=== PATIENT | male | born 1945 | race Caucasian/White ===

== ENCOUNTER 2020-02-28 11:44 | Emergency (ER) | payer OTHER, SELFPAY ==
[2020-02-28 11:54] VITALS: BP 129/80; PULSE 68; RESP 18; TEMP 36.8; O2SAT 95; BMI 26.6
--- NOTE | 2020-02-28 13:02 | XRR_ITS ---
PROCEDURE INFORMATION: Exam: XR Chest, 1 View Exam date and time: 02/28/2020 1:10 PM Age: 74 years old Clinical indication: Shortness of breath; Patient HX: C/O short of breath, weak and shaky. HX of bladder cancer; Additional info: SOB TECHNIQUE: Imaging protocol: XR of the chest Views: 1 view. COMPARISON: No relevant prior studies available. FINDINGS: Lungs: Unremarkable. No consolidation. Pleural space: Unremarkable. No pleural effusion. No pneumothorax. Heart/Mediastinum: Unremarkable. No cardiomegaly. Bones/joints: There are degenerative changes of the right shoulder. XR/XR chest 1V portable [id number] IMPRESSION: No acute findings
--- NOTE | 2020-02-28 13:06 | ECG_ITS ---
[facility] Test Date: 2020-02-28 Pat Name: Domenico Velazquez Department: Room: Gender: Male [employer] Technician: : 1945 Requested By: Calin Waller Order Number: [id number] Pat MD: Mervat Dc M.D. Measurements Intervals [place] Rate: 63 P: 70 PA: 159 QRS: 59 QRSD: 82 T: 46 QT: 394 QTc: 405 Interpretive Statements SINUS RHYTHM No previous ECG available for comparison Electronically Signed On 02-29-2020 1:21:22 CDT by Mervat Dc M.D. [email or web address]
[2020-02-28 13:35] LABS: Basophils % 0.2 %; Eosinophils # 0.1 10^3/uL (0.0-0.8); Eosinophils % 1.3 %; Hematocrit 42.9 % (42.0-52.0); Hemoglobin 13.9 g/dL (11.7-16.6); Lymphocytes # 1.5 10^3/uL (0.8-4.8); Lymphocytes % 29.3 %; Mean Corpuscular HGB Conc 32.4 g/dL (30.0-36.0); Mean Corpuscular Hemoglobin 29.7 pg (28.0-34.0); Mean Corpuscular Volume 91.7 fL (80-94); Mean Platelet Volume 10.9 fL (7.4-10.4); Monocytes # 0.6 10^3/uL (0.2-0.9); Monocytes % 10.5 %; Neutrophils # 3.07 10^3/uL (1.8-7.7); Neutrophils % 58.5 %; Nucleated Red Blood Cells % 0 %; Platelet Count 200 10^3/cmm (130-400); Red Blood Count 4.68 10^6/uL (4.1-5.3); White Blood Count 5.3 10^3/uL (4.0-10.0)
[2020-02-28 13:42] LABS: INR 0.93 (0.8-1.2)
[2020-02-28 13:50] LABS: Alanine Aminotransferase 23 U/L (0-41); Albumin Level 4.6 g/dL (3.5-5.2); Alkaline Phosphatase 119 IU/L (40-130); Anion Gap 15.3 (5-19); Aspartate Amino Transferase 22 U/L (0-40); Blood Urea Nitrogen 63 mg/dL (8-23); Calcium 9.5 mg/dL (8.5-10.5); Carbon Dioxide 25 mmol/L (22-29); Chloride 108 mmol/L (98-107); Globulin 2.7 g/dL (1.3-4.6); Glucose 97 mg/dL (65-115); Osmolality Calculated 297 mOsm/kg (285-295); Potassium 4.3 mmol/L (3.5-5.1); Sodium 144 mmol/L (136-145); Total Bilirubin 0.5 mg/dL (0.15-1.2); Total Protein 7.3 g/dL (6.6-8.7)
[2020-02-28 14:08] LABS: Troponin T (5th) Once 25 ng/L (0-15)
--- NOTE | 2020-02-28 14:11 | W.ED.WEAKNES ---
HPI - Weakness General: Chief complaint: Weakness Stated complaint: shaky/weak Time Seen by Provider: 02/28/20 14:11 History of Present Illness: HPI Narrative: 74-year-old male into the emergency department with multiple nonspecific complaints. He's felt dizzy and generally unwell a subtle lack of appetite spend a week. Patient has run a fever or had any infectious symptoms he hasn't been around anybody the nose with chronic virus with its been ill. He hasn't started on any new or different medications. He is not ever had symptoms quite like this in the past. Patient reports some mild nausea he hasn't been vomiting he doesn't have any chest pain or shortness of breath. He just feels generally weak and lightheaded. Associated symptoms: Reports nausea; Denies chest pain, chills, fever(s) or vomiting Review of Systems General: Reports: 10 or more systems reviewed and unremarkable except in HPI and below Const: Denies: fever(s) or chills Eyes: Denies: change in vision ENMT: Denies: throat pain Card: Denies: chest pain GI: Reports: nausea; Denies: vomiting : Reports: oliguria Musc: Denies: neck pain or muscle weakness Skin/Breast: Denies: rash or pruritus Physical Exam Const: COMMON NORMALS: no acute distress, average body habitus, patient oriented x3, no limitations, healthy appearing, alert and well nourished HENMT: COMMON NORMALS: normocephalic HEAD & SCALP: normocephalic Eye: COMMON NORMALS: Equal, round and reactive pupils present, EOMs intact bilaterally and conjunctivae normal CONJUNCTIVA: Yes conjunctivae normal PUPIL: Yes Equal, round and reactive pupils present Neck/C-Spine: COMMON NORMALS: full ROM, no lymphadenopathy, supple, no meningeal signs, no JVD, Thyroid normal and No carotid bruits THYROID: Thyroid normal Chest: COMMONS NORMALS: normal inspection of the chest and normal palpation of entire chest wall Resp: COMMON NORMALS: normal respiratory effort, No retractions, No use of accessory muscles, clear to auscultation bilaterally and percussion normal AUSCULTATION: clear to auscultation bilaterally PERCUSSION: percussion normal Cardio: COMMON NORMALS: no JVD GI: COMMON NORMALS: Normal to inspection, nondistended, normoactive bowel sounds present, Soft to palpation, non-tender, No hepatosplenomegaly present, no masses and no bruits PALPATION: Yes Soft to palpation and Yes No hepatosplenomegaly present : COMMON NORMALS: Yes no CVA tenderness BLADDER/KIDNEY EXAM: Yes no CVA tenderness Back/Pelvis: COMMON NORMALS: no CVA tenderness Extremity: COMMON NORMALS: normal to inspection, full ROM, capillary refill normal, no joint enlargement, no clubbing, cyanosis or edema, no calf tenderness and no pedal edema Neuro: COMMON NORMALS: patient oriented x3 SENSORIUM/ORIENTATION: Yes alert MENINGEAL SIGNS: Yes no meningeal signs Skin: COMMON NORMALS: no rashes or lesions noted, no wounds, turgor normal, no jaundice, no petechiae and no mottling GENERAL SKIN EXAM: no rashes or lesions noted and turgor normal Course Vital Signs: Vital signs: Vital Signs Temperature 98.2 F 02/28/20 11:54 Pulse Rate 62 02/28/20 16:00 Respiratory Rate 17 02/28/20 16:00 Blood Pressure 142/75 02/28/20 16:00 Pulse Oximetry 95 02/28/20 16:00 MDM - Weakness MDM Narrative: Medical decision making narrative: discussed differential diagnosis recommend routine labs IV fluids and serial reexaminations. we don't have any prior comparisons but I would suspect this is acute on chronic kidney disease I need him to get back into his regular doctor as soon as possible in the meantime I hold his hydrochlorothiazide, ibuprofen and lisinopril. Return precautions were discussed. Lab Data: Labs: Lab Results 02/28/20 02/28/20 02/28/20 Range/Units 13:10 13:10 13:10 WBC 5.3 (4.0-10.0) 10^3/ uL RBC 4.68 (4.1-5.3) 10^6/u L Hgb 13.9 (11.7-16.6) g/dL Hct 42.9 (42.0-52.0) % MCV 91.7 (80-94) fL MCH 29.7 (28.0-34.0) pg MCHC 32.4 (30.0-36.0) g/dL RDW 12.0 L (12.1-15.1) % Plt Count 200 (130-400) 10^3/c mm MPV 10.9 H (7.4-10.4) fL Neut % (Auto) 58.5 % Lymph % (Auto) 29.3 % Mills % (Auto) 10.5 % Eos % (Auto) 1.3 % Baso % (Auto) 0.2 % Neut # (Auto) 3.07 (1.8-7.7) 10^3/u L Lymph # (Auto) 1.5 (0.8-4.8) 10^3/u L Mills # (Auto) 0.6 (0.2-0.9) 10^3/u L Eos # (Auto) 0.1 (0.0-0.8) 10^3/u L Baso # (Auto) 0.0 (0.0-0.1) 10^3/u L Nucleated RBC % (a uto) 0 % Nucleated RBCs # 0.0 /100WBC PT 12.80 (10.5-13.3) SECO NDS INR 0.93 (0.8-1.2) Sodium 144 (136-145) mmol/L Potassium 4.3 (3.5-5.1) mmol/L Chloride 108 H (98-107) mmol/L Carbon Dioxide 25 (22-29) mmol/L Anion Gap 15.3 (5-19) BUN 63 H (8-23) mg/dL Creatinine 2.3 H (0.7-1.2) mg/dL Glucose 97 (65-115) mg/dL Calculated Osmolal ity 297 H (285-295) mOsm/k g Lactic Acid (0.5-2.2) mmol/L Calcium 9.5 (8.5-10.5) mg/dL Total Bilirubin 0.5 (0.15-1.2) mg/dL AST 22 (0-40) U/L ALT 23 (0-41) U/L Alkaline Phosphata se 119 (40-130) IU/L Troponin T Gen 5 n g/L (0-15) ng/L Total Protein 7.3 (6.6-8.7) g/dL Albumin 4.6 (3.5-5.2) g/dL Globulin 2.7 (1.3-4.6) g/dL 02/28/20 02/28/20 Range/Units 13:10 14:30 WBC (4.0-10.0) 10^3/ uL RBC (4.1-5.3) 10^6/u L Hgb (11.7-16.6) g/dL Hct (42.0-52.0) % MCV (80-94) fL MCH (28.0-34.0) pg MCHC (30.0-36.0) g/dL RDW (12.1-15.1) % Plt Count (130-400) 10^3/c mm MPV (7.4-10.4) fL Neut % (Auto) % Lymph % (Auto) % Mills % (Auto) % Eos % (Auto) % Baso % (Auto) % Neut # (Auto) (1.8-7.7) 10^3/u L Lymph # (Auto) (0.8-4.8) 10^3/u L Mills # (Auto) (0.2-0.9) 10^3/u L Eos # (Auto) (0.0-0.8) 10^3/u L Baso # (Auto) (0.0-0.1) 10^3/u L Nucleated RBC % (a uto) % Nucleated RBCs # /100WBC PT (10.5-13.3) SECO NDS INR (0.8-1.2) Sodium (136-145) mmol/L Potassium (3.5-5.1) mmol/L Chloride (98-107) mmol/L Carbon Dioxide (22-29) mmol/L Anion Gap (5-19) BUN (8-23) mg/dL Creatinine (0.7-1.2) mg/dL Glucose (65-115) mg/dL Calculated Osmolal ity (285-295) mOsm/k g Lactic Acid 1.2 (0.5-2.2) mmol/L Calcium (8.5-10.5) mg/dL Total Bilirubin (0.15-1.2) mg/dL AST (0-40) U/L ALT (0-41) U/L Alkaline Phosphata se (40-130) IU/L Troponin T Gen 5 n g/L 25 H (0-15) ng/L Total Protein (6.6-8.7) g/dL Albumin (3.5-5.2) g/dL Globulin (1.3-4.6) g/dL Discharge Plan Discharge Patient Disposition: Home, Self-Care Clinical Impression: Dehydration, Acute kidney injury Condition: Stable Prescriptions: Discontinued lisinopril 20 mg Tablet 10 mg PO DAILY RF: 0 ibuprofen 400 mg Tablet 400 mg PO QID PRN (Reason: Pain) RF: 0 hydrochlorothiazide 25 mg Tablet 25 mg PO DAILY RF: 0 No Action atorvastatin 80 mg Tablet 40 mg PO DAILY RF: 0 ipratropium-albuterol 0.5 mg-3 mg(2.5 mg base)/3 mL Solution For Nebulization 3 ml INHALATION TID PRN (Reason: Shortness Of Breath) RF: 0 albuterol sulfate 2.5 mg /3 mL (0.083 %) Solution For Nebulization 2.5 mg INHALATION TID PRN (Reason: Shortness Of Breath) RF: 0 metoprolol tartrate 100 mg Tablet 50 mg PO BID RF: 0 Flomax 0.4 mg Capsule 0.4 mg PO DAILY RF: 0 aspirin 81 mg Tablet,Chewable 81 mg PO DAILY RF: 0 albuterol sulfate 90 mcg/actuation Hfa Aerosol Inhaler 2 puff INHALATION Q6H PRN (Reason: Shortness Of Breath) RF: 0 budesonide-formoterol 160-4.5 mcg/actuation Hfa Aerosol Inhaler 2 puff INHALATION BID RF: 0 Discharge Orders: Discharge Order (Routine); Ordered 02/28/20 Ordered By: Trell Shepherd Discharge Diet: Low Salt Discharge Activity: Resume usual activity Coding Level of Care Code ED [employer] Operator for Chg Fwd Exam Comprehensive
[2020-02-28 14:13] VITALS: BP 119/70; PULSE 63; RESP 15; O2SAT 95
[2020-02-28] MEDS: lactated ringers 1,000 ML 999 ML IV (15:05)
[2020-02-28 15:06] LABS: Lactic Sepsis W/Reflex 1.2 mmol/L (0.5-2.2)
[2020-02-28 15:13] VITALS: BP 124/74; PULSE 65; RESP 16; O2SAT 95
[2020-02-28 16:00] VITALS: BP 142/75; PULSE 62; RESP 17; O2SAT 95
[2020-02-28 17:01] VITALS: BP 142/75; PULSE 62; RESP 17; O2SAT 95
[2020-02-28 17:05] LABS: Add Urine Microscopic? NO
[2020-02-28 17:20] LABS: Bilirubin Urine Neg (NEGATIVE); Blood Urine Neg (Negative); Glucose Urine UA Norm (Normal); Ketones Urine Negative (Negative); Leukocyte Esterase Urine Negative (Negative); Nitrate Urine Negative (Negative); Protein Urine Neg (Negative); Urine Appearance Clear (CLEAR); Urine Color Yellow (Yellow); Urobilinogen Urine Norm (Negative); pH Urine 5 (5-7)
== END 2020-02-28 17:02 | disposition home or self-care (01) ==
PROVIDERS: Nurse Practitioner Family; Emergency Provider Family Medicine
DX: N17.9 Acute kidney failure, unspecified (principal); E86.0 Dehydration; Z79.82 Long term (current) use of aspirin
CPT/HCPCS: 12345; 71045; 80053; 81003; 83605; 84484; 85025; 85610; 87040; 93005; 96365; 99283; 99284